=== PATIENT | female | born 1955 | race American Indian/Alaskan Native ===

== ENCOUNTER 2023-10-13 09:33 | Emergency (ER) | payer MEDICARE ==
[~2023-10-13] VITALS: Ht 142.2 cm; Wt 70.0 kg
[2023-10-13 09:46] VITALS: TEMP 97.6
[2023-10-13 10:38] LABS: BASOPHILS % (AUTO) 0.6 % (0-1); EOSINOPHILS # (AUTO) 0.1 X10'3 (0-0.9); EOSINOPHILS % (AUTO) 2.2 % (0-6); HEMATOCRIT 39.7 % (35.0-45.0); HEMOGLOBIN 12.9 g/dl (12.0-16.0); LYMPHOCYTES # (AUTO) 2.2 X10'3 (1.1-4.8); LYMPHOCYTES % (AUTO) 37.8 % (21-51); MEAN CORPUSCULAR HEMOGLOBIN 26.5 PG (27.0-31.0); MEAN CORPUSCULAR HGB CONC 32.5 g/dL (33.0-36.5); MEAN CORPUSCULAR VOLUME 81.8 FL (78-98); MEAN PLATELET VOLUME 9.8 FL (7.4-10.4); MONOCYTES # (AUTO) 0.5 X10'3 (0-0.9); MONOCYTES % (AUTO) 8.7 % (2-12); NEUTROPHILS # (AUTO) 2.9 X10'3 (1.8-7.7); NEUTROPHILS % (AUTO) 50.7 % (42-75); PLATELET COUNT 56 X10'3 (140-440); RED BLOOD COUNT 4.85 X10'6 (4.20-5.60); RED CELL DISTRIBUTION WIDTH 15.2 % (11.5-14.5); WHITE BLOOD COUNT 5.8 X10'3 (4.5-11.0)
[2023-10-13 10:42] LABS: ALBUMIN 3.4 G/DL (3.4-5.0); ANION GAP 8 (8-16); BLOOD UREA NITROGEN 18 MG/DL (7-18); BUN/CREATININE RATIO 17.1 (10.0-20.0); CALCIUM 8.9 MG/DL (8.5-10.1); CHLORIDE 105 MMOL/L (99-107); CREATININE 1.05 MG/DL (0.40-0.90); GLUCOSE 123 MG/DL (70-104); POTASSIUM 3.6 MMOL/L (3.5-5.1); PRO BRAIN NATRIURETIC PEPTIDE 740 PG/ML (0-125); SODIUM 140 MMOL/L (135-145); TOTAL CARBON DIOXIDE 27.5 MMOL/L (24-32); eCRCL 29 ML/MIN; eGFR 52 ML/MIN
[2023-10-13] MEDS: lisinopril 10 MG tablet PO ONE (11:56)
[2023-10-13] MEDS: hydrALAZINE 25 MG tablet PO STA (11:57)
[2023-10-13] MEDS ORDERED: LISI40TA13 PO (12:47)
[2023-10-13] MEDS ORDERED: LOP25T PO (12:47)
[2023-10-13] MEDS: acetaminophen 325mg tablet PO ONE (13:00)
[2023-10-13 13:03] VITALS: BP 135/74; PULSE 68; RESP 18; O2SAT 98
== END 2023-10-13 13:10 | disposition home or self-care (01) ==
LOC: ER 09:34
DX: I10 Essential (primary) hypertension (principal); Z79.899 Other long term (current) drug therapy
CPT/HCPCS: 36415; 71045; 80048; 83880; 84484; 85025; 93005; 99285